=== PATIENT | male | born 1995 | race American Indian/Alaskan Native ===

== ENCOUNTER 2017-09-20 16:52 | Emergency (ER) | payer MEDICAID, OTHER ==
[2017-09-20] MEDS ORDERED: Vancomycin 1.5 GM in Sodium Chloride 0.9% 500 ML IV ONE (18:50)
[2017-09-20] MEDS ORDERED: Sodium Chloride 0.9% 10 ML Syringe FLUSH PRN (18:51)
--- NOTE | 2017-09-20 19:17 | EDM.PDOC ---
<Shama López - Last Filed: 09/20/17 19:19> ED HPI GENERAL MEDICAL PROBLEM - General Chief Complaint: Skin Complaint Stated Complaint: [id number] SPIDER BITE Time Seen by Provider: 09/20/17 18:00 Source of Information: Reports: Patient, RN, RN Notes Reviewed History Limitations: Reports: No Limitations - History of Present Illness INITIAL COMMENTS - FREE TEXT/NARRATIVE: Pt presents to the ER with c/o "spider bite" on the top of the left foot. Patient states he thought the sore was a spider bite, but it continually got more red and painful. Patient states he did bump the area while working a few days ago. Patient also states that he has a small pimple like area on the right forearm. Patient denies fever, chills, N/V/D, chest pain, or SOB. Onset: Gradual - Related Data Allergies Allergy/AdvReac Type Severity Reaction Status Date / Time No Known Allergies Allergy Verified 09/20/17 17:14 Home Meds: Home Meds . [No Known Home Meds] 09/20/17 [History] Past Medical History - Past Health History Medical/Surgical History: Denies Medical/Surgical History Social & Family History - Tobacco Use Smoking Status *Q: Current Every Day Smoker Years of Tobacco use: 4 Packs/Tins Daily: 0.1 - Caffeine Use Caffeine Use: Reports: Coffee, Energy Drinks, Soda, Tea - Recreational Drug Use Recreational Drug Use: Yes Recreational Drug Type: Reports: Marijuana/Hashish ED ROS GENERAL - Review of Systems Review Of Systems: ROS reveals no pertinent complaints other than HPI. ED EXAM, SKIN/RASH Exam: See Below Exam Limited By: No Limitations General Appearance: Alert, WD/WN, No Apparent Distress Eye Exam: Bilateral Eye: EOMI, Normal Inspection Ears: Normal External Exam, Hearing Grossly Normal Nose: Normal Inspection Throat/Mouth: Normal Inspection Head: Atraumatic, Normocephalic Neck: Normal Inspection, Full Range of Motion Respiratory/Chest: No Respiratory Distress, Lungs Clear, Normal Breath Sounds, No Accessory Muscle Use, Chest Non-Tender Cardiovascular: Normal Peripheral Pulses, Regular Rate, Rhythm, No Edema, No Gallop, No JVD, No Murmur, No Rub Peripheral Pulses: 2+: Radial (L), Radial (R), Dorsalis Pedis (L), Dorsalis Pedis (R) GI/Abdominal: Normal Bowel Sounds, Soft, Non-Tender (Male) Exam: Deferred Rectal (Males) Exam: Deferred Back Exam: Normal Inspection, Full Range of Motion, NT Extremities: Normal Range of Motion, No Pedal Edema, Normal Capillary Refill, Redness (top of left foot) Neurological: Alert, Oriented, CN II-XII Intact, Normal Cognition, Normal Gait, Normal Reflexes, No Motor/Sensory Deficits Psychiatric: Normal Affect, Normal Mood Skin: Warm, Dry, Normal Color, Wound/Incision (top of left foot, 5cm x 5cm area of erythema with a central open area, approx. 2cm/2cm. ) Location, Skin: Lower Extremity, Left Associated features: Warmth, Tenderness, Induration Lymphatic: No Adenopathy Course - Vital Signs Last Recorded V/S: Last Vital Signs Temp 37.0 C 09/20/17 16:57 Pulse 67 09/20/17 16:57 Resp 17 09/20/17 16:57 BP 144/75 H 09/20/17 16:57 Pulse Ox 98 09/20/17 16:57 - Orders/Labs/Meds Orders: Active Orders 24 hr Category Date Time Status Peripheral IV Care [RC] . DIRECTED Care 09/20/17 18:51 Active CULTURE BLOOD [BC] Stat Lab 09/20/17 18:08 Received CULTURE WOUND [RM] Routine Lab 09/20/17 18:45 Received CULTURE WOUND [RM] Stat Lab 09/20/17 17:45 Received Sodium Chloride 0.9% [Saline Flush] Med 09/20/17 18:51 Active 10 ml FLUSH ASDIRECTED PRN Peripheral IV Insertion Adult [OM.PC] Stat Oth 09/20/17 18:51 Ordered Medication Orders Sodium Chloride (Saline Flush) 10 ml FLUSH ASDIRECTED PRN PRN Reason: Keep Vein Open Labs: Laboratory Tests 09/20/17 09/20/17 Range/Units 18:08 18:08 WBC 8.2 (5.0-10.0) 10^3/uL RBC 4.91 (4.6-6.2) 10^6/uL Hgb 14.5 (14.0-18.0) g/dL Hct 42.6 (40.0-54.0) % MCV 86.8 (80-100) fL MCH 29.5 (27.0-34.0) pg MCHC 34.0 (33.0-35.0) g/dL Plt Count 332 (150-450) 10^3/uL Neut % (Auto) 48.4 (42.2-75.2) % Lymph % (Auto) 32.9 (20.5-50.1) % [place] % (Auto) 8.7 H (2-8) % Eos % (Auto) 9.5 H (1.0-3.0) % Baso % (Auto) 0.5 (0.0-1.0) % Lactic Acid 1.4 (0.5-2.2) mmol/L Meds: Medications Generic Name Dose Route Start Last Admin Trade Name Freq PRN Reason Stop Dose Admin Sodium Chloride 10 ml 09/20/17 18:51 Saline Flush FLUSH ASDIRECTED PRN Keep Vein Open Discontinued Medications Generic Name Dose Route Start Last Admin Trade Name Freq PRN Reason Stop Dose Admin Vancomycin HCl 1.5 gm/ Sodium 500 mls @ 334 mls/hr 09/20/17 18:50 09/20/17 19 :23 Chloride IV 09/20/17 20:19 334 mls/hr ONETIME ONE Administration Departure - Departure Disposition: Home, Self-Care 01 Clinical Impression: Abscess - Discharge Information Instructions: Skin Abscess Referrals: PCP,None [Primary Care Provider] - Forms: ED Department Discharge Care Plan Goals: The patient was advised of the examination and lab results during the visit. The patient was given IV Vancomycin while in the ED. The patient was discharged with a script for Keflex #40 to take 1 by mouth 4 times per day for 10 days and Bactrim DS #20 to take 1 by mouth 2 times per day for 10 days. If the patient has any additional symptoms or concerns, the patient should follow-up with his primary care facility or return to the emergency department. <Roger Ross - Last Filed: 09/20/17 20:38> Departure - Departure Time of Disposition: 20:38 Condition: Fair
== END 2017-09-20 21:00 | disposition home or self-care (01) ==
LOC: DL.ED 16:52
DX: L02.612 Cutaneous abscess of left foot (principal); F17.210 Nicotine dependence, cigarettes, uncomplicated
CPT/HCPCS: 36415; 83605; 85025; 87040; 87070; 87077; 87186; 96365; 99282; 99283; J3370; J7040; 10060

== ENCOUNTER 2024-09-17 17:26 | Emergency (ER) | payer SELFPAY ==
[2024-09-17] MEDS: Ketamine 500 mg/10 ML MDV IVPUSH ONE (17:55)
[2024-09-17] MEDS: Lidocaine 2% 20 ML MDV INFILT ONE (18:10)
[2024-09-17] MEDS ORDERED: Bacitracin Oint 1 GM U/D Packet ONE (18:46)
[2024-09-17] MEDS: Diphtheria,Pertussis(Acell),Tetanus Vaccine 0.5 ML Syringe IM ONE (19:26)
[2024-09-17] MEDS: Ketamine 500 mg/10 ML MDV ONE (19:27)
[2024-09-17] MEDS: KETAMINE IV ONE (19:27)
[2024-09-17] MEDS: SODIUM CHLORIDE 0.9% IV ONE (19:27)
[2024-09-17] MEDS: Ondansetron 4 MG/2 ML SDV ONE (21:47)
[2024-09-17] MEDS: Ondansetron 4 MG/2 ML SDV IVPUSH ONE (21:57)
[2024-09-17] MEDS: Take Home: Sulfamethoxazole/Trimethoprim 800-160 MG Tab, 6 Tab Pack PO ONE (23:35)
== END 2024-09-17 23:51 | disposition home or self-care (01) ==
LOC: DL.ED 17:26
DX: S61.412A Laceration without foreign body of left hand, initial encounter (principal); Z23 Encounter for immunization; Y04.8XXA Assault by other bodily force, initial encounter
CPT/HCPCS: 12004; 12044; 90471; 90715; 96374; 96375; 99283; 99284; A9270; J2003; J2405; J3490